=== PATIENT | male | born 1950 | race Caucasian/White ===

== ENCOUNTER 2020-01-04 16:47 | Emergency (ER) | payer MEDICARE, SELFPAY ==
[~2020-01-04] VITALS: Ht 177.8 cm; Wt 119.0 kg
[~2020-01-04 16:47] MED LIST: ALBU8.5H8 INH; ALLO100T15 PO; ALPR1TAB7 PO; AMIO200T61 PO; AMLO5TAB16 PO; BUDE10.2 INH; CARV6.253 PO; DABI150C PO; FLUO-167 PO; FURO-150 PO; GLIP5TAB13 PO; HYDR-3964 PO; ISOS30TA10 PO; LISI-600 PO; MAGN400T28 PO; POTA20PA40 PO; PRAV20TA4 PO; TAMS0.4C32 PO; TIOT18CA3 INH
[2020-01-04] MEDS ORDERED: CEPH500C5 PO (17:58)
[2020-01-04] MEDS ORDERED: ketorolac tromethamine 15mg/ml inj. IM ONE (18:00)
[2020-01-04] MEDS ORDERED: morphine 4 MG/ML inj SYRINge IM ONE (18:00)
[2020-01-04] MEDS ORDERED: cephalexin 250mg capsule PO ONE (18:00)
--- NOTE | 2020-01-04 18:45 | NUR ---
OCEANOGRAPHY PROFESSOR TO APPLY SHOULDER WRAPPING AND SHOULDER IMMOBLIZER ORDER PRIOR TO DISCHARGE
[2020-01-04 19:10] VITALS: BP 150/90
== END 2020-01-04 19:00 | disposition home or self-care (01) ==
LOC: ER 16:48
DX: S42.402A Unspecified fracture of lower end of left humerus, initial encounter for closed fracture (principal); L03.114 Cellulitis of left upper limb; I48.91 Unspecified atrial fibrillation; I11.0 Hypertensive heart disease with heart failure; I50.9 Heart failure, unspecified; E11.9 Type 2 diabetes mellitus without complications; Z79.899 Other long term (current) drug therapy; Z79.01 Long term (current) use of anticoagulants; W18.30XA Fall on same level, unspecified, initial encounter; Y93.89 Activity, other specified; Y92.89 Other specified places as the place of occurrence of the external cause; Y99.9 Unspecified external cause status
CPT/HCPCS: 29105; 72074; 72110; 73080; 96372; 99284; J1885; J2270

== ENCOUNTER 2023-07-09 12:49 | Inpatient (IN) | payer OTHER, MEDICARE ==
[~2023-07-09] VITALS: Ht 177.8 cm; Wt 113.6 kg
[~2023-07-09 12:49] MED LIST changes: +ALBU8.5H17 INH; -ALBU8.5H8 INH; +AMI200T PO; -AMIO200T61 PO; -LISI-600 PO; +LISI20TA28 PO; -MAGN400T28 PO; +MAGN400T56 PO
[2023-07-09 13:40] LABS: BASOPHILS # (AUTO) 0.1 X10'3 (0-0.2); BASOPHILS % (AUTO) 0.8 % (0-1); EOSINOPHILS # (AUTO) 0.1 X10'3 (0-0.9); EOSINOPHILS % (AUTO) 0.6 % (0-6); HEMATOCRIT 38.9 % (42.0-52.0); HEMOGLOBIN 12.9 g/dl (14.0-17.9); LYMPHOCYTES # (AUTO) 0.5 X10'3 (1.1-4.8); LYMPHOCYTES % (AUTO) 4.4 % (21-51); MEAN CORPUSCULAR HEMOGLOBIN 29.4 PG (27.0-31.0); MEAN CORPUSCULAR HGB CONC 33.2 g/dL (33.0-36.5); MEAN CORPUSCULAR VOLUME 88.5 FL (78-98); MEAN PLATELET VOLUME 8.8 FL (7.4-10.4); MONOCYTES # (AUTO) 0.2 X10'3 (0-0.9); MONOCYTES % (AUTO) 1.9 % (2-12); NEUTROPHILS # (AUTO) 9.8 X10'3 (1.8-7.7); NEUTROPHILS % (AUTO) 92.3 % (42-75); PLATELET COUNT 281 X10'3 (140-440); RED BLOOD COUNT 4.39 X10'6 (4.70-6.10); RED CELL DISTRIBUTION WIDTH 15.1 % (11.5-14.5); WHITE BLOOD COUNT 10.6 X10'3 (4.5-11.0)
[2023-07-09 14:37] LABS: ALANINE AMINOTRANSFERASE 20 U/L (12-78); ALBUMIN 2.8 G/DL (3.4-5.0); ALBUMIN/GLOBULIN RATIO 0.6 (1.1-1.5); ALKALINE PHOSPHATASE 65 IU/L (46-116); ANION GAP 8 (8-16); ASPARTATE AMINO TRANSFERASE 12 U/L (10-37); BILIRUBIN,TOTAL 0.7 MG/DL (0.1-1.0); BLOOD UREA NITROGEN 16 MG/DL (7-18); BUN/CREATININE RATIO 10.5 (10.0-20.0); CALCIUM 8.6 MG/DL (8.5-10.1); CHLORIDE 100 MMOL/L (99-107); CREATININE 1.53 MG/DL (0.60-1.10); POTASSIUM 3.8 MMOL/L (3.5-5.1); PRO BRAIN NATRIURETIC PEPTIDE 4100 PG/ML (0-125); SODIUM 137 MMOL/L (135-145); TOTAL CARBON DIOXIDE 28.9 MMOL/L (24-32); TOTAL PROTEIN 7.2 G/DL (6.4-8.2); eCRCL 45 ML/MIN; eGFR 45 ML/MIN
[2023-07-09 14:43] LABS: GLUCOSE 510 MG/DL (70-104)
--- NOTE | 2023-07-09 15:10 | NUR ---
RECEIVED REPORT ASSUMED CARE OF PT AOX4 AT 1330 BS 510 PROVIDER NOTIFIED NO NEW ORDERS AT PRESENT TIME
[2023-07-09] MEDS ORDERED: furosemide 10 MG/1 ML 10ml inj IV ONE (15:35)
[2023-07-09] MEDS ORDERED: aspirin 81mg tab.chew PO ONE (15:35)
[2023-07-09] MEDS ORDERED: insulin regular, human 10 units/0.1 ml syringe SQ ONE ×2 (15:35→18:30)
[2023-07-09 16:17] LABS: ABG BASE EXCESS -0.5 mmol/L (-2.0-2.0); ABG HCO3 25.1 mmol/L (22.0-26.0); ABG OXYGEN SATURATION 97.2 % (94-97); ABG PCO2 (T) 44.3 mmHg (35.0-48.0); ALLEN'S TEST POSITIVE; FCOHb 0.8 % (0.0-3.9); FHHb 2.8 % (0.0-5.0); FLOW 5 L/min; FMetHb 0.2 % (0.0-1.5); FO2Hb 96.2 % (94-97); MODE NC; PATIENT TEMPERATURE 36.7; TOTAL HEMOGLOBIN 13.9 G/dl (14.0-17.9)
[2023-07-09] MEDS ORDERED: piperacillin/tazo 4.5gm/100ml 100 ML IV ONE (18:45)
[2023-07-09] MEDS ORDERED: vancomycin/NS 1 GM ADD-VANTAGE 250 ML IV ONE (18:45)
[2023-07-09 19:21] LABS: INR 1.1 INR; PROTHROMBIN TIME 11.8 SECONDS (9.0-12.0)
[2023-07-10] VITALS (11 sets, daily range): BP systolic 133–163; BP diastolic 70–83; PULSE 69–89; RESP 16–22; TEMP 97.2–98.8; O2SAT 94–97
[2023-07-10] MEDS ORDERED: HYDROcodone/acetaminophen 5mg/325mg tablet PO PRN (00:40)
[2023-07-10] MEDS ORDERED: magnesium hydroxide 30ml (MOM) UD suspension PO PRN (00:40)
[2023-07-10] MEDS ORDERED: morphine 2 MG/ML inj. syringe IV PRN ×2 (00:40)
[2023-07-10] MEDS ORDERED: acetaminophen 325mg tablet PO PRN ×2 (00:40)
[2023-07-10] MEDS ORDERED: acetaminophen 650mg rectal suppository RC PRN (00:40)
[2023-07-10] MEDS ORDERED: ipratropium/albuterol 3ml nebule NEB PRN (00:40)
[2023-07-10] MEDS ORDERED: ondansetron/PF 4mg/2ml inj IV PRN (00:40)
[2023-07-10] MEDS ORDERED: diphenhydrAMINE 50 mg/ml inj IV PRN (00:40)
[2023-07-10] MEDS ORDERED: mag hydrox/Alum hydrox/simeth 30ml oral suspension PO PRN (00:40)
[2023-07-10] MEDS ORDERED: bisacodyl 10mg suppository rectal RC PRN (00:40)
[2023-07-10] MEDS ORDERED: diphenhydrAMINE 25mg capsule PO PRN (00:40)
[2023-07-10] MEDS ORDERED: ondansetron 4mg rapidly disintigrating tab PO PRN (00:40)
[2023-07-10] MEDS ORDERED: normal saline 1000ml 1,000 ML IV SCH (00:40)
[2023-07-10] MEDS ORDERED: dextrose 50%-water 50ml dispensing syringe IV PRN ×2 (00:45)
[2023-07-10] MEDS ORDERED: DEXTROSE 15 GM of carb/4 tabs (each vial/BOTTLE has 4 tablets) PO PRN ×2 (00:45)
[2023-07-10] MEDS ORDERED: MESSAGE TO PHARMACY PO ONE (00:45)
[2023-07-10] MEDS ORDERED: glucagon, human recombinant 1mg kit SUBCUT PRN (00:45)
[2023-07-10] MEDS: HYDROcodone/acetaminophen 10/325mg tab PO PRN ×2 (01:05→21:37)
[2023-07-10 01:27] LABS: HEMOGLOBIN A1C 9.3 % (4.5-6.2)
[2023-07-10 01:29] LABS: APTT 37 SECONDS (22-32); D-DIMER 0.25 MG/L FEU (0-0.50)
[2023-07-10 01:42] LABS: MAGNESIUM 1.6 MG/DL (1.5-2.4); PHOSPHORUS 1.7 MG/DL (2.3-4.5); THYROID STIMULATING HORMONE 0.83 ulU/ml (0.34-4.50)
[2023-07-10] MEDS: insulin Lispro (HumaLOG) vial - multi-dose SQ SCH ×6 (03:21→21:29)
--- NOTE | 2023-07-10 03:40 | NUR ---
Received patient transfer from ER at 022 via wheelchair. Patient oriented to room, VSS, blood sugar 302, as per Dr. Bob, patient was covered with night time insulin dose of 2 units humulog. Patient resting comfortably in bed, BLL, sr up x2, call mccauley in reach
--- NOTE | 2023-07-10 06:26 | NUR ---
Patient report given, questions answered & plan of care reviewed with GEOFFREY Butler
--- NOTE | 2023-07-10 06:32 | NUR ---
Patient in room U 3023. I have received report from Patricia HALE and had the opportunity to ask questions and assume patient care. Pt sleeping, No distress, Call light in reach. Addendum: 07/10/23 at 0634 by Jasmin Hernandez RN Amended: Links added.
[2023-07-10] MEDS: pantoprazole 40mg Tablet.DR PO SCH (07:53)
[2023-07-10] MEDS: docusate sod 100mg capsule PO SCH ×2 (07:53→19:23)
[2023-07-10] MEDS: methylPREDNISolone sod succ/PF 40mg inj. IV SCH ×2 (07:55→19:23)
[2023-07-10] MEDS: CefTRIAXone/D5W-Rocephin 1gm 50 ML IV SCH (07:56)
[2023-07-10] MEDS ORDERED: heparin, porcine 5000 units/ml vial SQ SCH (08:00)
[2023-07-10] MEDS ORDERED: furosemide 40mg/4ml inj IV SCH (08:00)
[2023-07-10] MEDS: azithromycin/NS 500mg/250ml 250 ML IV SCH (08:44)
--- NOTE | 2023-07-10 10:08 | NUR ---
Diabetes consult: Pt presents with an A1c 9.3% and BG of 513mg/dl on admit per EMR. Pt seen at bedside for written/verbal diabetes nutrition education. Pt states he sees his provider for diabetes management every so often however takes medication as prescribed. Pt states his cooks most of their meals so he will pass down the nutrition handouts to her. RD contact also provided and encouraged pt to reach out for any nutrition questions or concerns. Addendum: 07/10/23 at [address] Amended: Links added.
[2023-07-10] MEDS ORDERED: MULT15TA3 PO (16:09)
[2023-07-10] MEDS ORDERED: AMIO200T27 PO (16:09)
[2023-07-10] MEDS ORDERED: ATOR40TA71 PO (16:09)
[2023-07-10] MEDS ORDERED: ALBU6.7H14 INH (16:09)
[2023-07-10] MEDS ORDERED: DULO60CA65 PO (16:09)
[2023-07-10] MEDS ORDERED: HUM7525 SQ (16:09)
[2023-07-10] MEDS ORDERED: ALLO100T25 PO (16:09)
[2023-07-10] MEDS ORDERED: ALPR-624 PO (16:09)
[2023-07-10] MEDS ORDERED: INSU100V56 SQ (16:09)
[2023-07-10] MEDS ORDERED: ZAR2.5T PO (16:09)
[2023-07-10] MEDS ORDERED: AMLO5TAB PO (16:09)
[2023-07-10] MEDS ORDERED: OMEG100037 PO (16:09)
[2023-07-10] MEDS ORDERED: LACTC PO (16:09)
[2023-07-10] MEDS ORDERED: POTA-366 PO (16:09)
[2023-07-10] MEDS ORDERED: FURO40TA4 PO (16:09)
[2023-07-10] MEDS ORDERED: LISI10TA27 PO (16:09)
[2023-07-10] MEDS ORDERED: CETI10TA15 PO (16:09)
[2023-07-10] MEDS ORDERED: PRED20TA PO (16:09)
[2023-07-10] MEDS ORDERED: HYDR-3968 PO (16:09)
[2023-07-10] MEDS ORDERED: CLON0.1T51 PO (16:09)
[2023-07-10] MEDS ORDERED: FLUT1BLS14 IH (16:09)
[2023-07-10] MEDS ORDERED: TIOT18CA3 IH (16:09)
--- NOTE | 2023-07-10 18:29 | NUR ---
Problems reprioritized. Patient report given, questions answered & plan of care reviewed with Patricia HALE. Pt in bed relaxing Call light in reach. Addendum: 07/10/23 at 1831 by Jasmin Hernandez RN Amended: Links added.
--- NOTE | 2023-07-10 18:29 | NUR ---
PAGER ID: [phone] MESSAGE: [id number] Maycol. Was in Afib, HR 160. This lasted almost 15 min. Now SR @ 90 bpm. Jasmin TORRES
--- NOTE | 2023-07-10 19:12 | NUR ---
[facility] [address], [address]27[address], run of afib lasting 15 min. not on cardiac home meds, concerned.
[2023-07-10] MEDS ORDERED: albuterol 2.5 MG/3 ML nebule NEB PRN (20:20)
[2023-07-10] MEDS ORDERED: non-formulary drug (Hydrocodone Bit/Acetaminophen (Hydrocodon-Acetaminoph 7.5-325) 1 TAB) PO PRN (20:20)
[2023-07-10] MEDS ORDERED: ALPRAZolam 0.5mg tablet PO PRN (20:20)
[2023-07-10] MEDS ORDERED: cloNIDine 0.1 mg tablet PO PRN (20:20)
[2023-07-10] MEDS: insulin glargine (Lantus) pen - multi-dose SQ SCH (21:31)
[2023-07-10] MEDS: dabigatran 150mg capsule PO SCH (21:38)
[2023-07-10] MEDS: temazepam 15mg capsule PO PRN (21:38)
[2023-07-10] MEDS: amiodarone 100mg tablet PO SCH (21:38)
[2023-07-11] VITALS (8 sets, daily range): BP systolic 131–163; BP diastolic 64–87; PULSE 78–93; RESP 18–21; TEMP 97.3–98.5; O2SAT 94–99
--- NOTE | 2023-07-11 06:11 | NUR ---
Patient report given, questions answered & plan of care reviewed with GEOFFREY Butler
--- NOTE | 2023-07-11 06:35 | NUR ---
Patient in room U 3023. I have received report from Patricia HALE and had the opportunity to ask questions and assume patient care. Addendum: 07/11/23 at 1811 by Jasmin Hernandez RN Amended: Links added.
[2023-07-11 07:28] LABS: BASOPHILS % (AUTO) 0.2 % (0-1); EOSINOPHILS % (AUTO) 0 % (0-6); HEMATOCRIT 38.8 % (42.0-52.0); HEMOGLOBIN 12.9 g/dl (14.0-17.9); LYMPHOCYTES # (AUTO) 0.9 X10'3 (1.1-4.8); LYMPHOCYTES % (AUTO) 6.7 % (21-51); MEAN CORPUSCULAR HEMOGLOBIN 29.3 PG (27.0-31.0); MEAN CORPUSCULAR HGB CONC 33.3 g/dL (33.0-36.5); MEAN PLATELET VOLUME 8.4 FL (7.4-10.4); MONOCYTES # (AUTO) 0.5 X10'3 (0-0.9); MONOCYTES % (AUTO) 3.8 % (2-12); NEUTROPHILS # (AUTO) 11.7 X10'3 (1.8-7.7); NEUTROPHILS % (AUTO) 89.3 % (42-75); PLATELET COUNT 361 X10'3 (140-440); RED BLOOD COUNT 4.41 X10'6 (4.70-6.10); RED CELL DISTRIBUTION WIDTH 15.3 % (11.5-14.5); WHITE BLOOD COUNT 13.1 X10'3 (4.5-11.0)
[2023-07-11] MEDS ORDERED: allopurinol 100mg tablet PO SCH (08:00)
[2023-07-11] MEDS: K and/or MAG REPLACEMENT MC SCH (08:00)
[2023-07-11] MEDS: CefTRIAXone/D5W-Rocephin 1gm 50 ML IV SCH (08:35)
[2023-07-11] MEDS: azithromycin/NS 500mg/250ml 250 ML IV SCH (08:35)
[2023-07-11] MEDS: docusate sod 100mg capsule PO SCH ×2 (08:35→19:19)
[2023-07-11] MEDS: lisinopril 10 MG tablet PO SCH (08:36)
[2023-07-11] MEDS: amLODIPine 5mg tablet PO SCH (08:36)
[2023-07-11] MEDS: amiodarone 100mg tablet PO SCH ×2 (08:37→19:19)
[2023-07-11] MEDS: pantoprazole 40mg Tablet.DR PO SCH (08:37)
[2023-07-11] MEDS: atorvastatin 20mg tablet PO SCH (08:37)
[2023-07-11] MEDS: duloxetine 30mg CAPSULE.DR PO SCH (08:38)
[2023-07-11] MEDS: dabigatran 150mg capsule PO SCH ×2 (08:39→19:19)
[2023-07-11 08:42] LABS: ALANINE AMINOTRANSFERASE 17 U/L (12-78); ALBUMIN 2.9 G/DL (3.4-5.0); ALBUMIN/GLOBULIN RATIO 0.7 (1.1-1.5); ALKALINE PHOSPHATASE 59 IU/L (46-116); ANION GAP 12 (8-16); ASPARTATE AMINO TRANSFERASE 13 U/L (10-37); BILIRUBIN,TOTAL 0.3 MG/DL (0.1-1.0); BLOOD UREA NITROGEN 29 MG/DL (7-18); BUN/CREATININE RATIO 20.6 (10.0-20.0); CHLORIDE 102 MMOL/L (99-107); CHOL/HDL RATIO 3.1 (0.00-4.99); CHOLESTEROL 171 MG/DL (0-200); CREATININE 1.41 MG/DL (0.60-1.10); GLUCOSE 178 MG/DL (70-104); HDL CHOLESTEROL 56 MG/DL (35-60); LDL CHOLESTEROL 88 MG/DL (50-100); POTASSIUM 3.3 MMOL/L (3.5-5.1); SODIUM 137 MMOL/L (135-145); TOTAL CARBON DIOXIDE 23.5 MMOL/L (24-32); TOTAL PROTEIN 7.2 G/DL (6.4-8.2); eCRCL 49 ML/MIN; eGFR 49 ML/MIN
[2023-07-11] MEDS: methylPREDNISolone sod succ/PF 40mg inj. IV SCH ×2 (08:42→19:18)
[2023-07-11] MEDS: insulin Lispro (HumaLOG) vial - multi-dose SQ SCH ×4 (08:51→21:45)
[2023-07-11] MEDS: FLUTICASONE SALMETEROL IH SCH ×2 (09:21→19:37)
[2023-07-11] MEDS: Tiotropium Bromide (Spiriva) IH SCH (09:21)
[2023-07-11] MEDS: furosemide 40mg/4ml inj IV SCH ×2 (09:26→19:18)
[2023-07-11] MEDS ORDERED: potassium Cl 20 mEq SR tablet PO PRN (11:10)
[2023-07-11] MEDS ORDERED: magnesium 2GM in 50ml NS 50 ML IV PRN (11:10)
[2023-07-11] MEDS ORDERED: magnesium Cl slow-release 64mg tablet PO PRN (11:10)
[2023-07-11] MEDS ORDERED: potassium Cl 40MEQ/1/2NS 520ml 520 ML IV PRN (11:10)
[2023-07-11] MEDS ORDERED: magnesium 4gm in 100ml NS 100 ML IV PRN (11:10)
[2023-07-11] MEDS: potassium Cl 20 mEq SR tablet PO PRN ×2 (11:17→19:18)
[2023-07-11 13:18] LABS: TRIGLYCERIDES 99 MG/DL (20-135)
[2023-07-11] MEDS ORDERED: allopurinol 300 MG tablet PO SCH (15:11)
--- NOTE | 2023-07-11 18:11 | NUR ---
Problems reprioritized. Patient report given, questions answered & plan of care reviewed with Patricia HALE. Pt eating dinner, Call light in reach. Addendum: 07/11/23 at 1812 by Jasmin Hernandez RN Amended: Links added.
[2023-07-11] MEDS: insulin glargine (Lantus) pen - multi-dose SQ SCH (21:44)
[2023-07-11] MEDS: HYDROcodone/acetaminophen 10/325mg tab PO PRN (21:55)
[2023-07-11] MEDS: temazepam 15mg capsule PO PRN (21:55)
[2023-07-12] MEDS: potassium Cl 20 mEq SR tablet PO PRN (00:33)
[2023-07-12 02:00] VITALS: BP 142/69; PULSE 75; RESP 15; TEMP 97.4; O2SAT 94
[2023-07-12 06:00] VITALS: BP 140/70; PULSE 71; RESP 19; TEMP 97.7; O2SAT 94
--- NOTE | 2023-07-12 06:18 | NUR ---
Patient report given, questions answered & plan of care reviewed with GEOFFREY Butler
--- NOTE | 2023-07-12 06:25 | NUR ---
Patient in room U 3023. I have received report from Patricia HALE and had the opportunity to ask questions and assume patient care.Pt awake and alert. Looking forward to D/c today. Addendum: 07/12/23 at 0642 by Jasmin Hernandez RN Amended: Links added.
[2023-07-12 07:15] LABS: BASOPHILS % (AUTO) 0 % (0-1); EOSINOPHILS % (AUTO) 0 % (0-6); HEMATOCRIT 37.3 % (42.0-52.0); HEMOGLOBIN 12.4 g/dl (14.0-17.9); LYMPHOCYTES # (AUTO) 0.8 X10'3 (1.1-4.8); MEAN CORPUSCULAR HEMOGLOBIN 29.6 PG (27.0-31.0); MEAN CORPUSCULAR HGB CONC 33.2 g/dL (33.0-36.5); MEAN PLATELET VOLUME 8.4 FL (7.4-10.4); MONOCYTES # (AUTO) 0.6 X10'3 (0-0.9); NEUTROPHILS # (AUTO) 14.4 X10'3 (1.8-7.7); PLATELET COUNT 372 X10'3 (140-440); RED BLOOD COUNT 4.19 X10'6 (4.70-6.10); RED CELL DISTRIBUTION WIDTH 15.1 % (11.5-14.5); WHITE BLOOD COUNT 15.9 X10'3 (4.5-11.0)
[2023-07-12] MEDS: pantoprazole 40mg Tablet.DR PO SCH (07:39)
[2023-07-12] MEDS: amLODIPine 5mg tablet PO SCH (07:39)
[2023-07-12] MEDS: lisinopril 10 MG tablet PO SCH (07:40)
[2023-07-12] MEDS: dabigatran 150mg capsule PO SCH (07:41)
[2023-07-12] MEDS: amiodarone 100mg tablet PO SCH (07:42)
[2023-07-12] MEDS: duloxetine 30mg CAPSULE.DR PO SCH (07:42)
[2023-07-12] MEDS: docusate sod 100mg capsule PO SCH (07:42)
[2023-07-12] MEDS: atorvastatin 20mg tablet PO SCH (07:42)
[2023-07-12 07:45] VITALS: RESP 14; O2SAT 94
[2023-07-12] MEDS: furosemide 40mg/4ml inj IV SCH (07:45)
[2023-07-12] MEDS: methylPREDNISolone sod succ/PF 40mg inj. IV SCH (07:47)
[2023-07-12] MEDS: CefTRIAXone/D5W-Rocephin 1gm 50 ML IV SCH (07:48)
[2023-07-12] MEDS: Tiotropium Bromide (Spiriva) IH SCH (07:49)
[2023-07-12] MEDS: FLUTICASONE SALMETEROL IH SCH (07:50)
[2023-07-12 07:52] VITALS: PULSE 77; RESP 20; O2SAT 98
[2023-07-12 07:52] LABS: ALANINE AMINOTRANSFERASE 19 U/L (12-78); ALBUMIN 2.7 G/DL (3.4-5.0); ALBUMIN/GLOBULIN RATIO 0.7 (1.1-1.5); ALKALINE PHOSPHATASE 54 IU/L (46-116); ANION GAP 10 (8-16); ASPARTATE AMINO TRANSFERASE 14 U/L (10-37); BILIRUBIN,TOTAL 0.2 MG/DL (0.1-1.0); BLOOD UREA NITROGEN 39 MG/DL (7-18); BUN/CREATININE RATIO 25.2 (10.0-20.0); CALCIUM 8.6 MG/DL (8.5-10.1); CHLORIDE 103 MMOL/L (99-107); CREATININE 1.55 MG/DL (0.60-1.10); GLUCOSE 221 MG/DL (70-104); POTASSIUM 3.8 MMOL/L (3.5-5.1); SODIUM 139 MMOL/L (135-145); TOTAL CARBON DIOXIDE 26.1 MMOL/L (24-32); TOTAL PROTEIN 6.6 G/DL (6.4-8.2); eCRCL 44 ML/MIN; eGFR 44 ML/MIN
[2023-07-12 07:55] VITALS: PULSE 77; RESP 20
[2023-07-12] MEDS: K and/or MAG REPLACEMENT MC SCH (08:00)
[2023-07-12] MEDS: azithromycin/NS 500mg/250ml 250 ML IV SCH (09:01)
[2023-07-12] MEDS: insulin Lispro (HumaLOG) vial - multi-dose SQ SCH ×2 (09:07→13:35)
[2023-07-12 11:00] VITALS: BP 140/70; PULSE 78; RESP 19; TEMP 97.7; O2SAT 94
--- NOTE | 2023-07-12 15:01 | NUR ---
All written and verbal orders for D/Cgiven, all questions answered. pt stated he had all belongings, Home meds given back from RX. Await ride home. Addendum: 07/12/23 at 1503 by Jasmin Hernandez RN Amended: Links added.
== END 2023-07-12 15:39 | disposition home or self-care (01) | DRG 189 ==
LOC: ER 12:49 → ED HOLD 07-10 00:42 → EDBEDREQ 07-10 01:41 → PCU 3S 07-10 02:00
PROVIDERS: ADMIT Family Medicine; ATTEND Family Medicine
PROC: 5A09357 Assistance with Respiratory Ventilation, Less than 24 Consecutive Hours, Continuous Positive Airway Pressure (ICD-10-PCS; principal; 2023-07-10)
DX: J96.21 Acute and chronic respiratory failure with hypoxia (principal); I50.33 Acute on chronic diastolic (congestive) heart failure; I13.0 Hypertensive heart and chronic kidney disease with heart failure and stage 1 through stage 4 chronic kidney disease, or unspecified chronic kidney disease; J44.1 Chronic obstructive pulmonary disease with (acute) exacerbation; N17.9 Acute kidney failure, unspecified; L03.116 Cellulitis of left lower limb; L03.115 Cellulitis of right lower limb; G89.4 Chronic pain syndrome; E88.09 Other disorders of plasma-protein metabolism, not elsewhere classified; L30.9 Dermatitis, unspecified; N18.9 Chronic kidney disease, unspecified; N40.0 Benign prostatic hyperplasia without lower urinary tract symptoms; E78.5 Hyperlipidemia, unspecified; M10.9 Gout, unspecified; E11.22 Type 2 diabetes mellitus with diabetic chronic kidney disease; I48.91 Unspecified atrial fibrillation; E11.65 Type 2 diabetes mellitus with hyperglycemia; I28.9 Disease of pulmonary vessels, unspecified; Z95.5 Presence of coronary angioplasty implant and graft; Z79.891 Long term (current) use of opiate analgesic; Z87.891 Personal history of nicotine dependence; Z99.81 Dependence on supplemental oxygen; Z79.01 Long term (current) use of anticoagulants; Z79.899 Other long term (current) drug therapy
CPT/HCPCS: 36415; 36600; 71045; 80053; 80061; 82803; 82948; 83036; 83605; 83735; 83880; 84100; 84443; 84484; 85018; 85025; 85379; 85610; 85730; 87040; 87081; 93306; 94640; 94760; 97116; 97161; 97530; 99285; A6212; G0378; J0456; J0696; J1815; J1940; J2543; J2920; J3370; J7030